=== PATIENT | female | born 1980 | race Caucasian/White ===

== ENCOUNTER 2016-07-31 22:55 | Observation (INO) | payer BC ==
--- NOTE | ~2016-07-31 | HP ---
History And Physical [id number] [facility] [place]. [address] NAME: SANFORD CASTRO : 78 STATUS : ADM Luis Eduardo PAT#: [id number] AGE: 36 ADM/REG DATE : 07/31/16 MR#: [id number] REPORT SERV DATE: 08/01/16 DICTATED BY: ARCHANA PETERS DATE: 08/01/16 REPORT STATUS : Draft TRANSCRIBED BY: JAZMYNE DATE: 08/01/16 DATE OF ADMISSION: 07/31/2016 SHAPE BRICK MOLDER: Pratima Mcrae M.D. CHIEF COMPLAINT: Chest and back pain. HISTORY OF PRESENT ILLNESS: Pleasant, 36-year-old, white female with known history of CAD, status post CABG x2 and mitral and tricuspid valve repair on 08/[address] Brock. Bypass included BRADEN to OM2 and vein graft to OM3 with a mitral valve repair using a 26 mm Fan-Suero mitral annuloplasty ring and tricuspid repair with 28 mm ATS Tri-Ad tricuspid annuloplasty ring. The patient reports that on 07/31 round 8:30 she awoke with chest pain, left-sided in nature, that radiates to her back. She describes it as a burning sensation. She reports associated shortness of breath, nausea, and belching. Denies any diaphoresis or dizziness. At its most intense, she rated her chest pain a 6/10. At time of interview in the [facility], she rates it a 3/10. She states medication provided in the emergency room did relieve her pain. The duration lasted "hours." She reports this as a single event. She also states that she took single Adderall 10 mg on 07/31 around 12 noon. She states her children were restless and annoying and she had increased stress in the house. Her Adderall has been discontinued ever since her coronary artery disease was identified. She states this was the only pill she had available to her. The patient denies any personal history of myocardial infarction, stroke, DVT, or pulmonary embolus. The patient denies any recent fever or chills, no palpitations. The patient denies any recent fever or chills, and no exposure to same by family members. Denies palpitations. No syncopal episodes. Denies PND or orthopnea. Of note, patient states that her nitroglycerin tablets fell out in her purse and she never knew to have the medication refilled by her prescription. She also ran out of potassium 20 mEq several weeks ago but has continued to take her Lasix daily. The patient reports a history of methamphetamine use for several months when she was 18 years of age but denies any current use. The patient also reports she intermittently gets her blood pressure checked at local establishments, most recently at a [facility] where the reading was "fair, no systolic or diastolic number is reported." The patient would most likely benefit by having a home blood pressure cuff available to her. PAST MEDICAL HISTORY: 1. CAD, status post CABG x2 with BRADEN to OM2 and vein graft to OM3 with mitral valve repaired with 26 mm Fan-Suero IMR mitral annuloplasty ring and tricuspid valve repair using a 28 mm ATS Tri-Ad tricuspid annuloplasty ring by Dr. Brock 08/2015. 2. Hypertension. 3. Dyslipidemia. 4. Cardiomyopathy. EF 50% by echo in 03/2016. History And Physical [address] [address] NAME: SANFORD CASTRO : 78 STATUS : ADM Luis Eduardo PAT#: [id number] AGE: 36 ADM/REG DATE : 07/31/16 MR#: [id number] REPORT SERV DATE: 08/01/16 DICTATED BY: ARCHANA PETERS DATE: 08/01/16 REPORT STATUS : Draft TRANSCRIBED BY: JAZMYNE DATE: 08/01/16 5. Leukocytosis, apparently chronic. 6. Tobacco abuse. 7. History of ADHD with Adderall discontinued with diagnosis of CAD. 8. Medical noncompliance (over use and under use). PAST SURGICAL HISTORY: CABG x2 with mitral valve and tricuspid valve repair, as above. SOCIAL HISTORY: She is with five children, unemployed, does not exercise. One pack of cigarettes every three days, has smoked as much as 1 pack for approximately 10 years. Denies alcohol or illicit's but does report that she used methamphetamine for several months when she was 18 years of age. FAMILY HISTORY: No embolic events reported in first-degree relatives. REVIEW OF SYSTEMS: A 14-point review of systems performed, significant for HPI including poor dentition; otherwise, complete review of systems obtained and negative. ALLERGIES: NO KNOWN DRUG ALLERGIES. HOME MEDICATIONS: 1. Adderall 10 mg 1 time dose 07/31 at 12 noon. 2. Aspirin 81 mg daily. 3. Atorvastatin 40 mg nightly. 4. Carvedilol 6.25 mg twice daily. 5. Lasix 40 mg daily. 6. Zestril 10 mg daily. 7. Nitroglycerin p.r.n. 8. Klor-Con 20 mEq daily(ran out 3 weeks ago). 9. Apresoline 10 mg half tablet p.o. q.6 hours p.r.n. systolic blood pressure greater than 150(has never taken). PHYSICAL EXAMINATION: VITAL SIGNS: Bilateral blood pressures on arrival, right 137/88, left 123/78, pulse 99, respirations 18, temperature 97.6, O2 saturation 96% on room air, height 5 feet 2 inches, weight 173 pounds, BMI 32. GENERAL: Cooperative, in no apparent distress. Poor dentition. HEENT: Pupils 2 mm, sclera nonicteric. Nares patent. Moist mucous membranes. No xanthelasma. NECK: Trachea midline, no thyromegaly. No JVD. No bruits. LYMPH: No cervical lymphadenopathy. No supraclavicular lymphadenopathy. RESPIRATORY: Unlabored respirations. Breath sounds clear bilaterally to posterior auscultation. No wheezes or rhonchi. Expiratory wheeze, left upper lobe. CARDIOVASCULAR: Regular rate. No murmur, rub or gallop appreciated. Extremities without edema. Pulses 2+ bilaterally. ABDOMEN: Obese, soft, nontender, nondistended, normal bowel sounds auscultated throughout. No organomegaly. History And Physical [address] [address] NAME: SANFORD CASTRO : 78 STATUS : ADM Luis Eduardo PAT#: [id number] AGE: 36 ADM/REG DATE : 07/31/16 MR#: [id number] REPORT SERV DATE: 08/01/16 DICTATED BY: ARCHANA PETERS DATE: 08/01/16 REPORT STATUS : Draft TRANSCRIBED BY: MODVa DATE: 08/01/16 SKIN: Warm, dry extremities. No pallor, or cyanosis. PSYCHIATRIC: Appropriate affect. Alert, oriented x3. LABORATORY DATA: Troponin less than 0.02 twice. Third pending. Potassium 3.0 (repleted with 40 mEq of potassium). BUN 10, creatinine 0.88, glucose 112, magnesium 2.1, BNP 67.9. WBC 15.2, hemoglobin 15.8, hematocrit 46.1, platelet count 275,000. D-dimer 0.72. EKG, sinus rhythm and sinus tach with RBBB. Echo, 03/2016: EF 50%. Mild LV dysfunction. Mild LAE (4.4 cm). Mitral and tricuspid valve repair functioning normally. CTA of chest, lungs clear. Heart size normal. Coronaries were free of calcium although there has been a left LAD bypass. Replacement of mitral and tricuspid valves. There do not appear to be any vegetations on the valves as can be assessed here. ASSESSMENT AND PLAN: 1. Chest pain in patient with multiple risk factors including CABG. The patient will be observed in the CPOU overnight to rule out myocardial infarction per protocol and held n.p.o. for cardiac PET in the morning given large chest and home if low risk, no ischemia. If anything suggestive of ischemia, Cardiology referral will be initiated. Otherwise, the patient will be asked to follow up with her PCP and Dr. Mcrae as appropriate. 2. Coronary artery disease. Continue home medications. Scripts written for potassium, Apresoline, and nitroglycerin sublingual. Lengthy discussion with patient regarding need to call office if medication if supply is exhausted or lost. Encouraged education regarding timely results of scripts and not running out of medication. 3. Hypertension. Monitor blood pressure. The patient would most likely benefit from a home blood pressure machine. We will ask case management to assist and provide script at discharge. 4. Dyslipidemia. Continue statin. 5. Cardiomyopathy, EF 50% by echo, 03/2016. 6. Ongoing tobacco abuse. Counseled regarding cessation. Patient informed that she cannot leave unit to smoke. 7. Medical noncompliance under an overdosing. The patient states that she ran out of potassium, has not taken that in several weeks, did not call for refill. Patient's nitroglycerin fell out in her purse. She did not note there were other refills available on her prescription. The patient took additional Adderall with stress in the home although Adderall was discontinued when her coronary artery disease was identified. Lengthy discussion with patient regarding overuse and under use and process to call provider for medication refill or assistance in how to navigate the pharmacy process. 8. Tachycardia. We will check urine drug screen. 9. Mild leukocytosis, appears chronic. Check UA. Recheck CBC in the morning. Denies any fever, chills or exposure to same. History And Physical [address] [place]. [address] NAME: SANFORD CASTRO : 78 STATUS : ADM Luis Eduardo PAT#: [id number] AGE: 36 ADM/REG DATE : 07/31/16 MR#: [id number] REPORT SERV DATE: 08/01/16 DICTATED BY: ARCHANA PETERS DATE: 08/01/16 REPORT STATUS : Draft TRANSCRIBED BY: JAZMYNE DATE: 08/01/16 DEVIN/JAZMYNE Archana Peters, IVETH, [employer] / [id number] CC: Archana Peters, IVETH, [employer] VARGAS Mcrae M.D.
[2016-07-31 22:20] LABS: BASOPHILS 0.2 %; BASOPHILS ABSOLUTE 0.03 10/3/uL (0.0-0.16); EOSINOPHILS 2.4 %; EOSINOPHILS ABSOLUTE 0.36 10/3/uL (0.0-0.53); HEMATOCRIT 46.1 % (36.0-48.0); HEMOGLOBIN 15.8 g/dL (12.0-16.0); IMMATURE GRANULOCYTES 0.2 %; IMMATURE GRANULOCYTES ABSOLUTE 0.03 10/3/uL (0.0-0.11); LYMPHOCYTES ABSOLUTE 3.18 10/3/uL (0.67-4.30); MEAN CORPUS HGB CONC 34.3 g/dL (32.0-36.0); MEAN CORPUSCULAR HEMOGLOB 29.4 pg (26.0-34.0); MEAN CORPUSCULAR VOLUME 85.7 fL (80-100); MONOCYTES 3.5 %; MONOCYTES ABSOLUTE 0.53 10/3/uL (0.21-1.20); NEUTROPHILS 72.7 %; NEUTROPHILS ABSOLUTE 11.04 10/3/uL (2.02-8.40); PLATELET COUNT 275 10/3/uL (150-400); RBC DISTRIBUTION WIDTH 12.8 % (12.0-16.0); RED CELL COUNT 5.38 10/6/uL (4.0-5.6); WHITE BLOOD CELLS 15.2 10/3/uL (4.5-10.5)
[2016-07-31 22:21] LABS: ER CBC TAT 0 Hrs 06 MinsNP; MANUAL DIFF NO %
[2016-07-31 22:33] LABS: INTERNATIONAL NORMAL RATI 1.1 UNITS (-); PROTIME (NOT ORD) 14.4 SEC (12.0-14.5)
[2016-07-31 22:37] LABS: BUN (BLOOD UREA NITROGEN) 10 MG/DL (6-23); CALCIUM, SERUM 9.5 MG/DL (8.5-10.4); CHEST PAIN PROFILE TAT 0 Hrs 23 Mins; CHLORIDE, SERUM 99 MMOL/L (96-112); CO2 (CARBON DIOXIDE) 29 MMOL/L (24-34); CREATININE 0.88 MG/DL (0.55-1.02); GFR AFRICAN AMERICAN 97 ML/MIN (>=60); GFR NON AFRICAN AMERICAN 84 ML/MIN (>=60); GLUCOSE, SERUM 112 MG/DL (60-99); SODIUM, SERUM 138 MMOL/L (135-148); TROPONIN I <0.02 NG/ML (<0.05)
[~2016-07-31 22:55] MED LIST: ASAB PO; COREG6 PO; KDUR20 PO; L40 PO; LIPITOR40 PO; NITROSTAT0.4 MG SL; NORCO1 TA1 PO; PRIN2.5 PO
[2016-07-31] MEDS ORDERED: NITROSTAT0.4 MG SL (23:00)
[2016-07-31] MEDS ORDERED: ASAB PO (23:02)
[2016-07-31] MEDS ORDERED: COREG6 PO (23:02)
[2016-07-31] MEDS ORDERED: LIPITOR40 PO (23:03)
[2016-07-31] MEDS ORDERED: L40 PO (23:03)
[2016-07-31] MEDS ORDERED: ZESTRIL10 MG PO (23:03)
[2016-07-31] MEDS ORDERED: ADDER10 PO (23:04)
[2016-07-31 23:06] LABS: D-DIMER QUANTITATIVE 0.72 ug/mLFEU (< 0.50)
[2016-07-31] MEDS ORDERED: KLOR-CON M2020 MEQ PO (23:13)
[2016-08-01 10:04] LABS: POTASSIUM, SERUM 3.6 MMOL/L (3.5-5.3); TROPONIN I <0.02 NG/ML (<0.05)
[2016-08-01 10:09] LABS: BENZODIAZEPINES (NOT ORD) NEG (NEG); PHENCYCLIDINE(PCP) NEG (NEG)
[2016-08-01 10:10] LABS: AMPHETAMINES (NOT ORD) POS (NEG); BARBITURATES (NOT ORDERED NEG (NEG); CANNABINOIDS (THC) NEG (NEG); COCAINE (NOT ORDERED) NEG (NEG); OPIATES POS (NEG); TRICYCLICS NEG (NEG)
[2016-08-01 10:12] LABS: ASCORBIC ACID (UR NOT ORDER) NEG (NEG); BILIRUBIN, URINE NEGATIVE (NEG); KETONE, URINE NEGATIVE (NEG); LEUKOCYTE ESTERASE(NOT OR TRACE (NEG); WBC (NOT ORDERED) (RFLEX) 5 (0-5)
[2016-08-02] MEDS ORDERED: APRES10B PO ×2 (14:57→15:00)
== END 2016-08-02 15:33 | disposition home or self-care (01) ==
LOC: ER 22:55 → ER/OF 23:59 → CDU1 08-01 06:02 → CDU2 08-01 06:14
PROVIDERS: Clinical Nurse Specialist; Emergency Medicine
DX: R07.9 Chest pain, unspecified (principal); I25.10 Atherosclerotic heart disease of native coronary artery without angina pectoris; I10 Essential (primary) hypertension; E78.5 Hyperlipidemia, unspecified; I42.9 Cardiomyopathy, unspecified; F90.9 Attention-deficit hyperactivity disorder, unspecified type; Z98.890 Other specified postprocedural states; F17.210 Nicotine dependence, cigarettes, uncomplicated; Z95.1 Presence of aortocoronary bypass graft; Z79.82 Long term (current) use of aspirin; Z79.899 Other long term (current) drug therapy; D72.829 Elevated white blood cell count, unspecified
CPT/HCPCS: 71020; 71275; 78492; 80048; 80305; 81001; 83735; 83880; 84132; 84484; 85025; 85379; 85610; 85730; 93005; 93017; 96374; 96375; 96376; 99285; A9270-GY; A9555; G0378; J0360; J1170; J2405; J2785; Q9967